=== PATIENT | female | born 1990 | race Caucasian/White ===

== ENCOUNTER 2018-07-25 17:48 | Emergency (ER) | payer BC, MEDICAID ==
[2018-07-25 17:57] VITALS: RESP 18; O2SAT 100
--- NOTE | 2018-07-25 19:08 | C.PDOC ---
History Of Present Illness Patient is a 28 year old female who presents to the ED c/o vaginal bleeding that began yesterday. Patient states that initially she noticed blood on the tissue yesterday but today it has since turned into spotting and bloody discharge. She states that she was seen by Dr. Rondon 2 days ago where she was dx with a 6 week by US Transvaginal, but when no heartbeat was detected she was told it was too early to tell. Patient also reports having labs done but does not know her serum HCG levels. She denies any abdominal pain, fever, nausea, vomiting, or urinary symptoms. Time Seen by Provider: 07/25/18 18:31 Chief Complaint (Nursing): Female Genitourinary History Per: Patient History/Exam Limitations: no limitations Onset/Duration Of Symptoms: Days (1) Current Symptoms Are (Timing): Still Present Quality Of Discomfort: denies: "Pain" Associated Symptoms: denies: Fever, Nausea, Vomiting, Urinary Symptoms Recent travel outside of the [place]: No Additional History Per: Patient Abnormal Vaginal Bleeding: Yes Past Medical History Reviewed: Historical Data, Nursing Documentation, Vital Signs Vital Signs: Last Vital Signs Temp 97.6 F 07/25/18 17:52 Pulse 68 07/25/18 17:52 Resp 18 07/25/18 17:52 BP 107/69 07/25/18 17:52 Pulse Ox 100 07/25/18 17:52 - Medical History PMH: No Chronic Diseases Surgical History: No Surg Hx Family History: States: No Known Family Hx - Social History Hx Alcohol Use: No Hx Substance Use: No - Immunization History Hx Tetanus Toxoid Vaccination: No Hx Influenza Vaccination: No Hx Pneumococcal Vaccination: No Review Of Systems Constitutional: Negative for: Fever Gastrointestinal: Negative for: Nausea, Vomiting, Abdominal Pain Genitourinary: Positive for: Vaginal Discharge (bloody ), Vaginal Bleeding (spotting). Negative for: Dysuria, Hematuria Physical Exam - Physical Exam Appears: Non-toxic, No Acute Distress Skin: Normal Color, Warm, Dry Head: Atraumatic, Normacephalic Oral Mucosa: Moist Neck: Normal ROM, Supple Chest: Symmetrical, No Deformity Cardiovascular: Rhythm Regular, No Murmur Respiratory: Normal Breath Sounds, No Rales, No Rhonchi, No Wheezing Gastrointestinal/Abdominal: Soft, No Tenderness, No Guarding, No Rebound Extremity: Normal ROM Neurological/Psych: Oriented x3, Normal Speech, Normal Cognition ED Course And Treatment - Laboratory Results Result Diagrams: 07/25/18 19:12 07/25/18 19:12 Lab Interpretation: Normal (BHCG 06561, blood type O+) O2 Sat by Pulse Oximetry: 100 (on RA) Pulse Ox Interpretation: Normal - CT Scan/US US Other Rad Studies (CT/US): Read By Radiologist, Radiology Report Reviewed CT/US Interpretation: History. Vaginal bleeding. Comparison. None available. Findings. Uterus. Single live intrauterine gestation. CRL equivalent to 5 wks/6 days gestation. Gestational sac diameter equivalent to 5 wks/4 days gestation. Heart rate: 121.77 bpm. Flower-gestational hemorrhage: None. Uterus measures 9.95 x 6.07 x 6.58 cm. No mass. Cervix. Long and closed measuring 3.32 cm. No cervical abnormality seen. Right Ovary. Measures 2.71 x 1.9 x 2.87 cm. No mass. Normal flow. Left Ovary. Measures 3.08 x 2.13 x 3.07 cm. No mass. Normal flow. Corpus luteal cyst measures 1.86 x 1.151 x 2.04 cm. Free Fluid. None. Other Findings. None. Impression. 1. Single live intrauterine gestation. 2. Left ovarian corpus luteal cyst. Reevaluation Time: 20:30 Reassessment Condition: Unchanged (Remains comfortable) Medical Decision Making Medical Decision Making: Plan: Labs US Pelvis Disposition Counseled Patient/Family Regarding: Studies Performed, Diagnosis, Need For Followup - Disposition Referrals: Travis Rondon MD [Staff Provider] - Disposition: HOME/ ROUTINE Disposition Time: 20:51 Condition: STABLE Instructions: Bleeding With Forms: [email or web address] (Swedish) - Clinical Impression Clinical Impression: Vaginal bleeding during - Scribe Statement The provider has reviewed the documentation as recorded by the Rigoibenoch Watkins All medical record entries made by the Rigoibenoch were at my direction and personally dictated by me. I have reviewed the chart and agree that the record accurately reflects my personal performance of the history, physical exam, medical decision making, and the department course for this patient. I have also personally directed, reviewed, and agree with the discharge instructions and disposition.
[2018-07-25 19:17] LABS: BASO % 0.3 % (0.0-2.0); EOS # 0.1 K/uL (0.0-0.7); EOS % 1.3 % (0.0-4.0); HEMOGLOBIN 12.5 g/dL (11.0-16.0); LYMPH % 31.6 % (20.0-40.0); MEAN CELL VOLUME 86.5 fL (81.0-99.0); MEAN CORPUSCULAR HEMOGLOBIN 28.6 pg (27.0-31.0); MEAN CORPUSCULAR HGB CONC 33.1 g/dL (33.0-37.0); MEAN PLATELET VOLUME 8.4 fL (7.2-11.7); MONO # 0.7 K/uL (0.0-0.8); MONO % 7.2 % (0.0-10.0); NEUT # 5.7 K/uL (1.8-7.0); NEUT % 59.6 % (50.0-75.0); RBC 4.39 Mil/uL (3.80-5.20); RED CELL DISTRIBUTION WIDTH 12.8 % (11.5-14.5); WHITE BLOOD COUNT 9.5 K/uL (4.8-10.8)
[2018-07-25 19:29] LABS: ALB/GLOB RATIO 1.6 (1.0-2.1); ALBUMIN 4.4 g/dL (3.5-5.0); ALT/SGPT 18 U/L (9-52); AST/SGOT 29 U/L (14-36); BLOOD UREA NITROGEN 12 mg/dL (7-17); CALCIUM 9.8 mg/dl (8.6-10.4); GFR NON-AFRICAN AMERICAN > 60
[2018-07-25 21:18] VITALS: BP 99/63; PULSE 66; TEMP 98.3
--- NOTE | 2018-07-26 10:59 | US ---
Date of service: 07/25/2018 PROCEDURE: OB Pelvic Ultrasound HISTORY: vaginal bleeding LMP: 03/06/2019. COMPARISON: None available. FINDINGS: UTERUS: Single Live intrauterine gestation. CRL measures 0.28 cm equivalent to 5 weeks and 6 days of gestational age. Gestational sac diameter measures 1.33 cm equivalent to 5 weeks and 4 days of gestational age. age (Ultrasound estimated): 5 weeks and 5 days Date of delivery (Ultrasound estimated) : 03/22/2019 Heart rate: 121 bpm. Flower-gestational hemorrhage: None. Uterus measures 9.95 x 6.07 x 6.58 cm. No mass CERVIX: Long and closed. No cervical abnormality seen. RIGHT OVARY: Measures 2.7 x 1.9 x 2.8 cm. No mass. Normal flow. LEFT OVARY: Measures 3.0 x 2.1 x 3.0 cm. No mass. Normal flow. There is a 1.8 x 1.5 x 2.0 cm corpus luteum cyst. FREE FLUID: None. OTHER FINDINGS: None. IMPRESSION: Single live intrauterine gestation with mean gestational age of 5 weeks and 5 days. The estimated date of delivery by ultrasound is 03/22/2019. There is a discrepancy with the clinical dates. Clinical follow-up is advised. A preliminary report was provided by [facility].
== END 2018-07-25 21:19 | disposition home or self-care (01) ==
LOC: C.ER 17:48
DX: O46.91 Antepartum hemorrhage, unspecified, first trimester (principal); Z3A.01 Less than 8 weeks gestation of pregnancy